=== PATIENT | female | born 1970 | race African-American/Black ===

== ENCOUNTER 2016-06-23 14:14 | Emergency (ER) | payer OTHER ==
[~2016-06-23] VITALS: Ht 157.5 cm; Wt 65.0 kg
[2016-06-23 14:14] VITALS: BP 117/68
[~2016-06-23 14:14] MED LIST: CIPR500T94 PO; HYDR-971 PO; HYDR453.3 TP; OMEP20TA63 PO; ONDA4TAB10 SL; PRED20TA PO
--- NOTE | 2016-06-23 14:52 | RAD ---
Examination: 3 views of the left third digit History: History of smashed third digit in the cabinet 3 weeks back, pain Comparison: None available Findings The alignment of the PIP, DIP joint of the third digit grossly appears unremarkable. There is no obvious acute fracture or dislocation visualized however evaluation is somewhat limited on the lateral view due to positioning. Grossly there is moderate size soft tissue swelling identified about the distal phalanx likely secondary to soft tissue injury. Impression: 1. No acute osseous findings. Examination is somewhat limited due to positioning, particularly on the lateral view. 2. Moderate soft tissue swelling identified about the distal phalanx third digit likely soft tissue injury.
--- NOTE | 2016-06-23 15:06 | PHYS DOC ---
General Chief Complaint: FINGER INJURY Stated Complaint: FINGER INJURY Time Seen by MD: 14:24 Source: patient Problems: History of Present Illness Initial Comments 45 -year-old right-handed female patient states she smashed her left middle finger on cabinet door 3 weeks ago with mild pain and edema. Patient complaining of increasing pain and edema of fingertip for the last 1 week. Patient denies focal neuro deficit, fever, chills, other injuries. Allergies: Coded Allergies: No Known Drug Allergies (Unverified , 07/12/13) Past Medical History Medical History: hypertension Surgical History: appendectomy, other Family History Significant Family History: no pertinent family hx Review of Systems Constitutional: no symptoms reported EENTM: no symptoms reported Respiratory: no symptoms reported Cardiovascular: no symptoms reported Gastrointestinal: no symptoms reported Genitourinary: no symptoms reported Musculoskeletal: see HPI Skin: no symptoms reported Psychiatric/Neurological: no symptoms reported Hematologic/Lymphatic: no symptoms reported Immunological/Allergic: no symptoms reported All Other Systems: Reviewed and Negative Physical Exam General Appearance: WD/WN, mild distress Eyes: bilateral eye PERRL, bilateral eye normal inspection Ear, Nose, Throat: hearing grossly normal, normal ENT inspection Neck: non-tender, full range of motion Respiratory: chest non-tender, lungs clear, normal breath sounds Cardiovascular: normal peripheral pulses, regular rate, rhythm Extremities: other (left third fingertip with edema and erythema and tenderness with fluctuation) Incision and Drainage Incision and Drainage : Site: left middle finfer tip Blade Size: 15 I & D Procedure: sterile dressing applied Orders, Labs, Meds Evaluation of patient in ER showed 45-year-old female patient with left middle finger abscess that was drained with moderate amount of drainage of pus. Dressing applied and patient instructed to return to ER in 2 days for evaluation of the abscess. Departure Departure: Impression: Primary Impression: Finger pulp abscess Disposition: 01 HOME, SELF-CARE (at 1529) Condition: IMPROVED Patient Instructions: Abscess Additional Instructions: Return in 2 days for evaluation of absces in ER Scripts Hydrocodone Bit/Acetaminophen ([place] 5-325 Tablet)1 Each Tablet1 Tab PO PRN Q6HRS PRN PAIN #14 TAB Ref 0 Prov:DEBORAH IRAHETA MD 06/23/16 Sulfamethoxazole/Trimethoprim (Bactrim Ds Tablet)1 Each Tablet1 Tab PO BID #14 TAB Prov:DEBORAH IRAHETA MD 06/23/16 DEBORAH IRAHETA MD Jun 23, 2016 15:06
[2016-06-23] MEDS ORDERED: LIDOCAINE 1% Multi-Dose 20 ML VIAL. IJ ONE (15:15)
[2016-06-23] MEDS ORDERED: HYDR-971 PO (15:32)
[2016-06-23] MEDS ORDERED: SULF1TAB24 PO (15:32)
== END 2016-06-23 15:41 | disposition home or self-care (01) ==
LOC: ER 14:14
DX: L02.512 Cutaneous abscess of left hand (principal); I10 Essential (primary) hypertension
CPT/HCPCS: 26010; 73140; 99284-25

== ENCOUNTER → 2016-08-09 | Outpatient (CLI) | payer OTHER ==
[~2016-08-09] MED LIST changes: +SULF1TAB24 PO
--- NOTE | 2016-08-09 15:59 | RAD ---
Renal ultrasound, 08/09/2016: History: Urinary incontinence The right kidney measures 9.9 cm in length while the left kidney measures 10.2 cm. There is no evidence of hydronephrosis or a renal mass. There is a tiny 6 mm hyperechoic focus seen in the mid right kidney. There is no posterior acoustic shadowing. This may be a small angiomyolipoma or a scar. The renal parenchymal echogenicity is otherwise within normal limits. No abnormal perinephric process is seen. Limited views of urinary bladder demonstrate a prevoiding volume of 300 cc. There was only 3 cc of residual urine in the bladder post voiding. IMPRESSION: 1. Tiny right renal echogenic focus raising the possibility of a small angiomyolipoma. 2. The kidneys are otherwise unremarkable. 3. Good bladder emptying.
== END | disposition home or self-care (01) ==
LOC: US 13:53
PROVIDERS: ATTEND Urology
DX: R32 Unspecified urinary incontinence (principal)
CPT/HCPCS: 76770

== ENCOUNTER → 2016-09-01 | Outpatient (CLI) | payer OTHER ==
[~2016-09-01] MED LIST changes: +IOHEXOL 300 MG/ML 75 ML VIAL. IV ONE
--- NOTE | 2016-09-01 12:26 | RAD ---
CT of the abdomen and pelvis with and without contrast, (CT urography) 09/01/2016: History: Hematuria, urinary incontinence Multidetector CT imaging was performed prior to and following an IV bolus injection of iodinated contrast material. The postcontrast scans were obtained through the kidneys in a nephrographic phase and through the entire urinary tract in an excretory phase. 3-D MIP images of the urinary tract were constructed from the excretory phase data. Both kidneys demonstrate minimal cortical lobulation and/or scarring. No intrarenal calculi are identified. The renal collecting systems and ureters are not dilated. No ureteral calculus is seen. The partially filled urinary bladder is unremarkable. There is a tiny 4 mm low-density lesion in the anterior aspect of the right kidney as best seen on sagittal image 319 of series #10. It demonstrates internal areas of probable fatty density. The appearance compatible with a small angiomyolipoma, as also noted on the recent ultrasound exam of 08/09/2016. No other renal mass is evident. No hepatic abnormality is detected. The gallbladder is unremarkable. The pancreas cannot be clearly from unopacified bowel but shows no specific abnormality. The spleen is of normal size. The abdominal aorta is unremarkable. No abdominal or pelvic adenopathy is seen. The bowel loops are not dilated. No free fluid is evident in the abdomen or pelvis. IMPRESSION: 1. Tiny right renal angiomyolipoma. 2. No other significant urinary tract abnormality is detected. PQRS Compliance Statement: One or more of the following individualized dose reduction techniques were utilized for this examination: 1. Automated exposure control 2. Adjustment of the mA and/or kV according to patient size 3. Use of iterative reconstruction technique
== END | disposition home or self-care (01) ==
LOC: CT 08:45
PROVIDERS: ATTEND Urology
DX: D17.71 Benign lipomatous neoplasm of kidney (principal); R31.21 Asymptomatic microscopic hematuria; R32 Unspecified urinary incontinence
CPT/HCPCS: 74178; Q9967

== ENCOUNTER 2016-11-28 07:44 | Emergency (ER) | payer OTHER ==
[~2016-11-28 07:44] MED LIST changes: -IOHEXOL 300 MG/ML 75 ML VIAL. IV ONE
[2016-11-28 08:09] VITALS: BP 120/77
[2016-11-28] MEDS ORDERED: TRIA15OI9 TP (08:19)
--- NOTE | 2016-11-28 08:19 | PHYS DOC ---
Past History Past Medical History: No Pertinent History, Other Past Surgical History: Appendectomy, , Hysterectomy Smoking: Cigarettes, Less than 1pk/day Alcohol Use: None Drug Use: None Adult General Chief Complaint Chief Complaint: SKIN PROBLEM HPI HPI Patient is a 46-year-old female who presents ambulatory to the ED with several complaints. Patient has noticed a worsening of an itchy rash on both dorsal hands and forearms. She's had this for at least 2 months. She's had this in the past as well, was seen about a year ago and diagnosed with eczema, prescribed hydrocortisone for that. She thinks it helped but she has been out of that for a long time. She brought some "anti-itch cream" at the [employer] store that did not really help. She does use baby lotion on her skin every day. She does not have this rash anywhere else. Another complaint is that she has had some pain in her right wrist and right thumb area. She is right-handed. She works for a [employer] and [employer] and does lifting and moving objects all day long. This has been going on for quite a while. She's never been seen for it. Another complaint is ongoing urinary incontinence. She has been seen, had testing, she has mentioned this to her [employer] physician and also has seen a urologist. She told me that her [employer] physician's office told her to be seen in the emergency department for this. We discussed that. I explained that this is not an emergency and we can't do anything about it, we discussed appropriate follow-up for this complaint. PCP [facility] [employer] doctor Liza Review of Systems Review of Systems : As in history of present illness, she has had a hysterectomy Musculoskeletal: Denies other joint pain besides right wrist/thumb Integument: Denies rash anywhere other than bilateral dorsal forearms and hands Allergies Allergies Allergies Coded Allergies Type Severity Reaction Last Updated Verified No Known Drug Allergies 07/12/13 No Physical Exam Physical Exam Constitutional: Well developed, well nourished, no acute distress, non-toxic appearance. Alert, mentating normally, talkative, no acute distress. HENT: Normocephalic, atraumatic, bilateral external ears normal, nose normal. [] Eyes: conjunctiva normal, no discharge. [] Neck: Normal range of motion, no stridor. [] Skin: Warm, dry, no erythema. Bilateral dorsal hands and forearms have a fine papular rash. No vesicles. It does not appear urticarial. It does appear consistent with contact dermatitis. Extremities: Right wrist/hand: No swelling. No deformity. Tenderness to palpation over the thumb flexor tendons. Pain with thumb extension against resistance. Neurologic: Alert and oriented X 3, normal motor function, normal sensory function, no focal deficits noted. [] EKG EKG [] Radiology/Procedures Radiology/Procedures [] Course & Med Decision Making Course & Med Decision Making Pertinent Labs and Imaging studies reviewed. (See chart for details) 46-year-old female who has likely contact dermatitis and also has right thumb flexor tendinitis. See instructions for plan. [] Dragon Disclaimer Dragon Disclaimer This chart was dictated in whole or in part using Voice Recognition software in a busy, high-work load, and often noisy Emergency Department environment. It may contain unintended and wholly unrecognized errors or omissions. Departure Departure: Impression: Primary Impression: Contact dermatitis Additional Impression: Tendinitis of thumb Disposition: 01 HOME, SELF-CARE Condition: STABLE Referrals: PCP,CHONG (PCP) Additional Instructions: For the rash: Stop using baby lotion to see if that helps. Use the steroid ointment that I am prescribing for you. For the wrist/thumb pain: Continue taking ibuprofen which is a good anti-inflammatory medication. Ice 15-20 minutes out of every 1-2 hours all day long as much as possible. Make an appointment in the clinic with a urologist about that problem. Scripts Triamcinolone Acetonide (TRIAMCINOLONE ACETONIDE) 15 Gm Oint...g. 1 TONIA TP BID, #60 GM 1 Refill Prov: PEDRO LOPEZ MD 11/28/16 Problem Qualifiers PEDRO LOPEZ MD Nov 28, 2016 08:19
== END 2016-11-28 08:30 | disposition home or self-care (01) ==
LOC: ER 07:44
DX: L25.9 Unspecified contact dermatitis, unspecified cause (principal); M77.8 Other enthesopathies, not elsewhere classified; F17.210 Nicotine dependence, cigarettes, uncomplicated
CPT/HCPCS: 99283

== ENCOUNTER 2017-03-30 00:30 | Emergency (ER) | payer OTHER ==
[~2017-03-30] VITALS: Ht 157.5 cm; Wt 65.0 kg
[2017-03-30 00:30] VITALS: BP 105/68
[~2017-03-30 00:30] MED LIST changes: +TRIA15OI9 TP
[2017-03-30] MEDS ORDERED: HYDROcodone/APAP 10/325 1 TAB TABLET PO ONE (01:30)
[2017-03-30] MEDS ORDERED: HYDR-971 PO (01:31)
--- NOTE | 2017-03-30 01:35 | PHYS DOC ---
General Chief Complaint: FOOT INJURY PAIN Stated Complaint: LEFT FOOT INJURY Time Seen by MD: 00:32 Source: patient Exam Limitations: no limitations Problems: History of Present Illness Initial Comments Patient is a 46-year-old female who comes to the ED complaining of fall injury and left foot pain. Patient states immediately prior to arrival she was trying to adjust the ceiling vent at home standing on a nightstand wearing socks. She says that her socks slipped on the wood surface causing her to fall to the floor. She denies any head trauma loss of consciousness headache or neck pain, she states that when she tried to stand she had severe discomfort at the dorsal aspect of her left foot. She is uncertain of the mechanism, whether she hit it on a hard surface or twisted it. She tried to tolerate the pain initially however the pain began to intensify and now she cannot tolerate walking due to the pain. Pain is located at the dorsal aspect of the left foot described as severe worse with movement better with rest. No pre-arrival treatment, patient denies numbness tingling weakness or radiating symptoms and denies any other injuries resulting from the fall. She called her daughter who has brought her for evaluation. Onset: just prior to arrival Severity: severe Pain/Injury Location: left foot Method of Injury: fell Modifying Factors: worse with jarring, worse with movement, improves with rest Allergies: Coded Allergies: No Known Drug Allergies (Unverified , 07/12/13) Past Medical History Medical History: no pertinent history Surgical History: appendectomy, other Family History Significant Family History: no pertinent family hx Social History Smoker: cigarettes Alcohol: other ("glass of wine daily) Drugs: marijuana Review of Systems Constitutional: denies chills, denies fever, denies malaise Respiratory: denies cough, denies shortness of breath Cardiovascular: denies chest pain, denies palpitations Gastrointestinal: denies diarrhea, denies nausea, denies vomiting Genitourinary: denies dysuria, denies frequency, denies hematuria Musculoskeletal: see HPI Psychiatric/Neurological: see HPI Physical Exam General Appearance: WD/WN, mild distress HEENT: PERRL/EOMI (conjunctivae injected bilaterally), normal ENT inspection ( head is normocephalic atraumatic) Neck: non-tender, supple Cardiovascular/Respiratory: normal peripheral pulses, no respiratory distress Back: no CVA tenderness, no vertebral tenderness Knees: bilateral knee non-tender, bilateral knee normal inspection, bilateral knee normal range of motion, bilateral knee no evidence of injury Ankles: right ankle non-tender, right ankle normal inspection, right ankle normal range of motion, right ankle no evidence of injury Feet: right foot non-tender, right foot normal inspection, right foot normal range of motion, right foot no evidence of injury, left foot other (an area of soft tissue swelling, tenderness, and warmth at the dorsal aspect of the left foot. There are no skin changes consistent with blunt object trauma, no abrasions, ecchymosis. No palpable bony deformity or specific bony tenderness, range of motion exam limited due to pain tolerance.) Neurologic/Tendon: normal sensation, normal motor functions, responds to pain Psychiatric: alert, oriented x 3 Skin: normal color, warm/dry Orders, Labs, Meds Left foot: Images interpreted by me, no acute dislocated fracture. I discussed likelihood that the patient suffered a sprain from her fall. She works tomorrow and then is off through the holiday and requests a work note. I discussed the departure instructions as well as prescription and over-the- counter medications. Patient was advised to discontinue substance abuse and her questions were answered to her satisfaction. She expressed agreement and understanding of treatment plan. Departure Time of Disposition: 01:32 Disposition: 01 HOME, SELF-CARE Diagnosis: L foot sprain, Fall injury Condition: GOOD Patient Instructions: Foot Sprain-Brief, RICE - Routine Care for Injuries, Easy -to-Read Additional Instructions: RICE, see handout. Use crutches and postop shoe as needed for symptom control. Off work tomorrow, note given. [id number] ibuprofen for baseline discomfort. A Tylenol with codeine start pack was dispensed, take 1-2 every 6 hours as needed for severe breakthrough pain. Prescription: [place] 5 mg quantity 20 Take medications with food to avoid abdominal discomfort and nausea. Take [id number] stool softeners and increase fluid intake to avoid opiate associated constipation. Follow-up with her doctor next week if not better. Return to ED with new or changing symptoms. RAFAEL MORENO DO Mar 30, 2017 01:35
[2017-03-30] MEDS ORDERED: ACETAMINOPHEN/CODEINE 300/30MG 4TABLET STARTPACK. PO ONE (02:00)
--- NOTE | 2017-03-30 07:10 | RAD ---
Indication: Injury to the left foot. Time of exam 0057 hours. 3 views of the left foot were obtained. The metatarsals and phalanges appear intact. The midfoot and hindfoot are unremarkable. No fractures are seen. Impression: No acute bony abnormality is detected.
== END 2017-03-30 01:50 | disposition home or self-care (01) ==
LOC: ER 00:30
DX: S93.602A Unspecified sprain of left foot, initial encounter (principal); F17.210 Nicotine dependence, cigarettes, uncomplicated; F12.10 Cannabis abuse, uncomplicated; W01.0XXA Fall on same level from slipping, tripping and stumbling without subsequent striking against object, initial encounter; Y93.89 Activity, other specified; Y99.8 Other external cause status; Y92.098 Other place in other non-institutional residence as the place of occurrence of the external cause
CPT/HCPCS: 73630; 99284-25

== ENCOUNTER 2017-10-16 21:17 | Emergency (ER) | payer OTHER ==
[~2017-10-16] VITALS: Ht 157.5 cm; Wt 65.0 kg
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
== END 2017-10-16 23:40 | disposition home or self-care (01) ==
LOC: ER 21:17
DX: S06.0X0A Concussion without loss of consciousness, initial encounter (principal); S13.4XXA Sprain of ligaments of cervical spine, initial encounter; R91.1 Solitary pulmonary nodule; F17.210 Nicotine dependence, cigarettes, uncomplicated; F10.20 Alcohol dependence, uncomplicated; W22.8XXA Striking against or struck by other objects, initial encounter; Y93.89 Activity, other specified; Y99.8 Other external cause status; Y92.89 Other specified places as the place of occurrence of the external cause
CPT/HCPCS: 70450; 72125; 99284-25

== ENCOUNTER 2020-07-28 07:53 | Emergency (ER) | payer MEDICAID, OTHER ==
[~2020-07-28] VITALS: Ht 157.5 cm; Wt 74.1 kg
[~2020-07-28 07:53] MED LIST changes: +HYDR-3165 PO; -HYDR-971 PO
[2020-07-28 08:23] LABS: BASO % 1 % (0-3); EOS # 0.2 x10^3/uL (0.0-0.7); EOS % 3 % (0-3); HEMATOCRIT 36.9 % (36.0-47.0); HEMOGLOBIN 12.5 g/dL (12.0-15.5); LYMPH # 2.3 x10^3/uL (1.0-4.8); LYMPH % 38 % (24-48); MEAN CORPUSCULAR HEMOGLOBIN 32 pg (25-35); MEAN CORPUSCULAR HGB CONC 34 g/dL (31-37); MEAN CORPUSCULAR VOLUME 93 fL (79-100); MONO # 0.7 x10^3/uL (0.0-1.1); MONO % 11 % (0-9); NEUT # 2.9 x10^3uL (1.8-7.7); NEUT % 47 % (31-73); PLATELET COUNT 268 x10^3/uL (140-400); RED BLOOD COUNT 3.96 x10^6/uL (3.50-5.40); RED CELL DISTRIBUTION WIDTH 12.9 % (11.5-14.5); WHITE BLOOD COUNT 6.1 x10^3/uL (4.0-11.0)
--- NOTE | 2020-07-28 08:31 | PHYS DOC ---
Past History Past Medical History: Migraines, Other Additional Past Medical Histor: chronic pain, urinary incontince Past Surgical History: Appendectomy, , Hysterectomy Smoking: Cigarettes, Less than 1pk/day Alcohol Use: Rarely Drug Use: Marijuana General Adult EDM: Chief Complaint: CHEST PAIN HPI: HPI: 49-year-old female presents with chest pain. Patient woke up this morning around 7 AM and started to have some chest pain. She describes it as a pressure and burning sensation. Is currently 10 out of 10. She is mildly tearful. She does state that she feels like she has to breathe through her mouth. She is short of breath. She denies diaphoresis. She is not sure if he gets better or worse with exertion. She has never had symptoms like this before. No cardiac history. No history of stress test or cardiac cath. Patient does smoke marijuana. She had some yesterday and a few puffs this morning prior to these episodes. She did not have any chest pain after smoking yesterday. She is also a cigarette smoker. One drink a day alcohol. She denies any chest trauma or overuse. Review of Systems: Review of Systems: Constitutional: Denies fever or chills Eyes: Denies change in visual acuity HENT: Denies nasal congestion or sore throat Respiratory: Denies cough or shortness of breath Cardiovascular: Denies chest pain or edema GI: Denies abdominal pain, nausea, vomiting, bloody stools or diarrhea : Denies dysuria Musculoskeletal: Denies back pain or joint pain Integument: Denies rash Neurologic: Denies headache, focal weakness or sensory changes Endocrine: Denies polyuria or polydipsia Lymphatic: Denies swollen glands Psychiatric: Denies depression or anxiety Allergies: Allergies: Allergies Coded Allergies Type Severity Reaction Last Updated Verified No Known Drug Allergies 07/12/13 No Physical Exam: PE: Constitutional: Well developed, well nourished, no acute distress, non-toxic appearance. [] HENT: Normocephalic, atraumatic, bilateral external ears normal, oropharynx moist, no oral exudates, nose normal. [] Eyes: PERRLA, EOMI, conjunctiva normal, no discharge. [] Neck: Normal range of motion, no tenderness, supple, no stridor. [] Cardiovascular:Heart rate regular rhythm, no murmur [] Lungs & Thorax: Bilateral breath sounds clear to auscultation [] Abdomen: Bowel sounds normal, soft, no tenderness, no masses, no pulsatile masses. [] Skin: Warm, dry, no erythema, no rash. [] Back: No tenderness, no CVA tenderness. [] Extremities: No tenderness, no cyanosis, no clubbing, ROM intact, no edema. [] Neurologic: Alert and oriented X 3, normal motor function, normal sensory function, no focal deficits noted. [] Psychologic: Affect normal, judgement normal, mood normal. [] Current Patient Data: Vital Signs: Vital Signs Date Time Temp Pulse Resp B/P (MAP) Pulse Ox O2 Delivery O2 Flow Rate FiO2 07/28/20 07:59 98.3 80 18 134/87 (103) 96 Room Air EKG: EKG: Sinus rhythm, rate seventy-five, normal axis, no ST elevations or depressions. [] Radiology/Procedures: Radiology/Procedures: [] Impressions: XR CHEST 1V CLINICAL INDICATIONS: Chest pain. COMPARISON: September 08, 2015. Findings: No acute lung infiltrate or pleural effusion or pulmonary edema or lung mass or pneumothorax is seen. The heart size, pulmonary vasculature, mediastinum and both destiny are unremarkable. IMPRESSION: No acute radiographic abnormality is seen. Electronically signed by: Abdulkadir Jane MD (07/28/2020 8:45 AM) [id number] DICTATED AND SIGNED BY: ABDULKADIR JANE MD DATE: 07/28/20 0832 CC: KRISTA GARCIA DO; PCP,NO ~MTH0 0 Heart Score: C/O Chest Pain: Yes HEART Score for Chest Pain: HEART Score for Chest Pain Response (Comments) Value History Moderately Suspicious 1 ECG Normal 0 Age >45 - < 65 1 Risk Factors 1 or 2 Risk Factors 1 Troponin < Normal Limit 0 Total 3 Risk Factors: Risk Factors: DM, Current or recent (<one month) smoker, HTN, HLP, family history of CAD, obesity. Risk Scores: Score 0 - 3: 2.5% MACE over next 6 weeks - Discharge Home Score 4 - 6: 20.3% MACE over next 6 weeks - Admit for Clinical Observation Score 7 - 10: 72.7% MACE over next 6 weeks - Early Invasive Strategies Course & Med Decision Making: Course & Med Decision Making Pertinent Labs and Imaging studies reviewed. (See chart for details) The patient's EKG is unremarkable. Her chest x-ray is unremarkable. Her labs are unremarkable. Her troponin is negative. Her feeling of a subjective tightness of her chest does not appear to be cardiopulmonary at this time. Her heart score is a 3. I will try GI cocktail. The patient was starting to feel better prior to the GI cocktail. She continues to feel better than arrival. She is comfortable with going home. I have discussed warning signs to look for if her symptoms come back or worsen. She will return the emergency room if needed. She is stable for discharge at this time. [] Dragon Disclaimer: Dragon Disclaimer: This electronic medical record was generated, in whole or in part, using a voice recognition dictation system. Departure Departure: Impression: Primary Impression: Chest pain Qualified Codes: R07.2 - Precordial pain Disposition: HOME / SELF CARE / HOMELESS Condition: IMPROVED Referrals: [facility] (PCP) Patient Instructions: Chest Pain (Nonspecific), [id number] KRISTA GARCIA DO Jul 28, 2020 08:31
[2020-07-28 08:33] LABS: CALCIUM 9.4 mg/dL (8.5-10.1); CREATININE 0.7 mg/dL (0.6-1.0); GFR 106.7; POTASSIUM 3.7 mmol/L (3.5-5.1)
[2020-07-28 08:38] LABS: ALBUMIN 3.7 g/dL (3.4-5.0); ALBUMIN/GLOBULIN RATIO 1.2 (1.0-1.7); TOTAL BILIRUBIN 0.3 mg/dL (0.2-1.0); TOTAL PROTEIN 6.9 g/dL (6.4-8.2)
--- NOTE | 2020-07-28 08:47 | RAD ---
XR CHEST 1V CLINICAL INDICATIONS: Chest pain. COMPARISON: September 08, 2015. Findings: No acute lung infiltrate or pleural effusion or pulmonary edema or lung mass or pneumothora x is seen. The heart size, pulmonary vasculature, mediastinum and both destiny are unremarkable. IMPRESSION: No acute radiographic abnormality is seen. Electronically signed by: Andres Jane MD (07/28/2020 8:45 AM) [id number]
[2020-07-28] MEDS ORDERED: LIDO:MAALOX 1:1 20 ML SINGLE DOSE. PO ONE (09:15)
--- NOTE | 2020-07-28 09:23 | EKG ---
[address] [address] Test Date: 2020-07-28 Test Time: 07:59:13 Pat Name: JUANJOSE BUI Department: Room: Gender: F [facility]: GILBERT : 1970 Requested By: KRISTA GARCIA Order Number: [id number] Reading MD: Measurements Intervals [place] Rate: 75 P: 64 [place]: 158 QRS: 32 QRSD: 86 T: 45 QT: 376 QTc: 422 Interpretive Statements SINUS RHYTHM NORMAL ECG RI6.02 No previous ECG available for comparison
[2020-07-28 09:30] VITALS: BP 105/56
[2020-07-28 09:53] LABS: BARBITURATES NEG (NEG); BENZODIAZEPINES NEG (NEG); CANNABINOIDS POS (NEG); COCAINE NEG (NEG); METHADONE NEG (NEG); OPIATES NEG (NEG); PHENCYCLIDINE NEG (NEG)
[2020-07-28 09:59] LABS: AMPHETAMINE/METHAMPHETAMINE NEG (NEG)
[2020-07-28 10:08] LABS: BILIRUBIN,URINE NEG (NEG); CLARITY,URINE CLEAR; COLOR,URINE YELLOW; GLUCOSE,URINE NEG (NEG)
[2020-07-28 10:09] LABS: BACTERIA,URINE 0 /HPF (0-FEW); NITRITE,URINE NEG (NEG); RBC,URINE OCC /HPF (0-2); SQUAMOUS EPITHELIAL CELL,UR FEW /LPF; UROBILINOGEN,URINE 0.2 mg/dL (0.2 mg/dL)
== END 2020-07-28 10:03 | disposition home or self-care (01) ==
LOC: ER 07:53
DX: R07.2 Precordial pain (principal); R06.02 Shortness of breath; G43.909 Migraine, unspecified, not intractable, without status migrainosus; G89.29 Other chronic pain; F17.210 Nicotine dependence, cigarettes, uncomplicated; Z90.49 Acquired absence of other specified parts of digestive tract; Z98.890 Other specified postprocedural states; Z90.710 Acquired absence of both cervix and uterus
CPT/HCPCS: 36415; 71045; 80053; 80307; 81001; 84484; 85025; 93005; 99285